=== PATIENT | female | born 1980 | race Hispanic/Latino ===

== ENCOUNTER 2022-02-15 14:08 | Emergency (ER) | payer SELFPAY ==
[2022-02-15 15:55] LABS: Basophils % (Auto) 0.5 % (0.0-1.8); Eosinophils # (Auto) 0.1 K/mm3 (0.0-0.4); Eosinophils % (Auto) 1.3 % (0.0-4.3); Hematocrit 37.2 % (30.3-42.9); Hemoglobin 12.1 gm/dl (10.1-14.3); Lymphocytes # (Auto) 2.9 K/mm3 (1.2-5.4); Lymphocytes % (Auto) 37.3 % (13.4-35.0); Mean Corpuscular HGB Conc 33 % (30-34); Mean Corpuscular Volume 75 fl (79-97); Monocytes # (Auto) 0.7 K/mm3 (0.0-0.8); Monocytes % (Auto) 9.4 % (0.0-7.3); Platelet Count 305 K/mm3 (140-440); Red Blood Count 4.98 M/mm3 (3.65-5.03)
[2022-02-15 15:56] LABS: Red Cell Distribution Width 22.5 % (13.2-15.2)
[2022-02-15 16:07] LABS: Amphetamine Screen,Urine PRESUMPTIVE NEGATIVE; Benzodiazepines Screen,Urine PRESUMPTIVE NEGATIVE; Cannabinoid Screen,Urine PRESUMPTIVE NEGATIVE; Cocaine Screen,Urine PRESUMPTIVE POSITIVE; Methadone Screen,Urine PRESUMPTIVE NEGATIVE; Opiate Screen,Urine PRESUMPTIVE NEGATIVE
[2022-02-15 16:12] LABS: Blood Urea Nitrogen 5 mg/dL (7-17); Calcium 8.9 mg/dL (8.4-10.2); Hemolysis Index 4
[2022-02-15 16:15] LABS: BUN/Creatinine Ratio 8
[2022-02-15 16:23] LABS: Color,Urine Yellow (Yellow)
[2022-02-15 16:27] LABS: Bacteria,Urine 1+ /HPF (Negative); WBC,Urine < 1.0 /HPF (0.0-6.0)
--- NOTE | 2022-02-15 17:06 | Emergency Department Report ---
ED General Adult HPI - General Chief complaint: Psych Stated complaint: SUICIDAL IDEATIONS PUI?: No Time Seen by Provider: 02/15/22 15:11 Source: patient Mode of arrival: Stretcher Limitations: No Limitations - History of Present Illness Initial comments: Pt presents with C/O depression with SI -: unknown Severity scale (0 -10): 0 Consistency: constant Associated Symptoms: denies: denies other symptoms, confusion, chest pain - Related Data Home Medications Medication Instructions Recorded Confirmed Last Taken No Known Home Medications [No 02/15/22 02/15/22 Unknown Reported Home Medications] Allergies Allergy/AdvReac Type Severity Reaction Status Date / Time No Known Allergies Allergy Unverified 02/15/22 14:53 ED Review of Systems ROS: Stated complaint: SUICIDAL IDEATIONS Other details as noted in HPI Constitutional: denies: chills, fever Eyes: denies: eye pain, eye discharge, vision change ENT: denies: ear pain, throat pain Respiratory: denies: cough, shortness of breath, wheezing Cardiovascular: denies: chest pain, palpitations Endocrine: no symptoms reported Gastrointestinal: denies: abdominal pain, nausea, diarrhea Genitourinary: denies: urgency, dysuria, discharge Musculoskeletal: denies: back pain, joint swelling, arthralgia Skin: denies: rash, lesions Neurological: denies: headache, weakness, paresthesias Psychiatric: denies: anxiety, depression Hematological/Lymphatic: denies: easy bleeding, easy bruising ED Past Medical Hx - Past Medical History Hx Seizures: Yes - Social History Smoking Status: Never Smoker Substance Use Type: Alcohol - Medications Home Medications: Home Medications Medication Instructions Recorded Confirmed Last Taken Type No Known Home Medications [No 02/15/22 02/15/22 Unknown History Reported Home Medications] ED Physical Exam - General Limitations: No Limitations General appearance: alert, anxious - Head Head exam: Present: atraumatic, normocephalic - Eye Eye exam: Present: normal appearance - ENT ENT exam: Present: mucous membranes moist - Neck Neck exam: Present: normal inspection - Respiratory Respiratory exam: Present: normal lung sounds bilaterally. Absent: respiratory distress - Cardiovascular Cardiovascular Exam: Present: regular rate, normal rhythm. Absent: systolic murmur, diastolic murmur, rubs, gallop - GI/Abdominal GI/Abdominal exam: Present: soft, normal bowel sounds - Extremities Exam Extremities exam: Present: normal inspection - Back Exam Back exam: Present: normal inspection - Neurological Exam Neurological exam: Present: alert, oriented X3 - Psychiatric Psychiatric exam: Present: depressed, agitated, anxious, suicidal ideation - Skin Skin exam: Present: warm, dry, intact, normal color. Absent: rash ED Course Vital Signs 02/15/22 02/15/22 14:22 15:17 Temperature 98.2 F Pulse Rate 109 H Respiratory 18 Rate Blood Pressure 131/85 [Left] O2 Sat by Pulse 100 100 Oximetry ED Medical Decision Making - Lab Data Result diagrams: 02/15/22 15:36 02/15/22 15:36 Critical care attestation.: If time is entered above; I have spent that time in minutes in the direct care of this critically ill patient, excluding procedure time. ED Disposition Clinical Impression: Suicidal ideation Disposition: 30 STILL A PATIENT Condition: Stable
--- NOTE | 2022-02-16 09:54 | Consultation ---
History of Present Illness - Reason for Consult Consult date: 02/16/22 Reason for consult: suicidal ideation - History of Present Psychiatric Illness The patient is a 41 year old female with unknown psychiatric history who presents to the ED with suicidal ideation. The patient is calm and cooperative. The patient reports ongoing depression x 7 months, state trigger as " I woke up to a bill that was due, I could not breathe, something felt different." She states " I wanted to kill myself yesterday, I was trying to hang myself and the thing broke, I'm stressed out, I feel like I lost myself." She reports cocaine use, last used on Thursday. She is tearful, stating " I just want to get back to feeling better." She denies any current suicidal/homicidal ideation and denies hallucinations. PAST PSYCHIATRIC HISTORY Diagnoses: Denies Suicide attempts or Self-harm behavior: Denies Prior psychiatric hospitalizations: Denies Substance Abuse history: Cocaine , alcohol Previous psychiatric medications tried: Denies Outpatient treatment: Denies PAST MEDICAL HISTORY: None reported Family Psychiatric History: None reported or documented SOCIAL HISTORY Marital Status: single Living Arrangements: Lives with ex girlfriend Employment Status: employed Access to guns/weapons: Denies Education: Some College History of Abuse: yes Legal History: Denies REVIEW OF SYSTEMS Constitutional: Negative for weight loss ENT: Negative for stridor Respiratory: Negative for cough or hemoptysis All other systems reviewed and are negative MENTAL STATUS EXAMINATION General Appearance and Behavior: Age appropriate, good hygiene, wearing appropriate clothes, good eye contact, calm, cooperative Cooperation: Participating/engaged Psychomotor Behavior: Psychomotor normal Mood: Depressed Affect and affective range: congruent with stated mood Thought Process: goal directed Thought Content: Reality oriented Speech: Normal tone and pace Suicidal Ideation: Denies Homicidal Ideation: Denies Hallucinations: Denies Delusions: None elicited Impulse Control: Normal Insight and Judgment: Limited insight and judgment Memory: Normal Attention: Attentive Orientation: Alert, oriented Assessment and Plan Major depressive disorder Treatment Plan 1013 Continue home Meds Trazadone 50mg QHS, Zoloft 25mg Dialy Risks, benefits and alternatives of medications discussed with the patient, questions answered and consent obtained from patient. PSYCHOTHERAPY: Supportive psychotherapy provided MEDICAL: Per primary team DELIRIUM PRECAUTIONS: Please re-orient patient frequently, keep lights on during the day, and minimize benzodiazepines and opiates as these medications could worsen patient's confusion. RN OSTOMY: Defer to primary DISPOSITION: Recommend acute inpatient psychiatric hospitalization at this time. Will follow. Thank you for the consult. Please contact with any questions and/or concerns. Case staffed with Dr. Spring Medications and Allergies Allergies Allergy/AdvReac Type Severity Reaction Status Date / Time No Known Allergies Allergy Unverified 02/15/22 14:53 Home Medications Medication Instructions Recorded Confirmed Last Taken Type No Known Home Medications [No 02/15/22 02/15/22 Unknown History Reported Home Medications] Mental Status Exam - Vital signs Last Vital Signs Temp 98.6 F 02/16/22 09:35 Pulse 95 H 02/16/22 09:35 Resp 20 02/16/22 09:35 BP 123/83 02/16/22 09:35 Pulse Ox 100 02/16/22 09:35 Results Result Diagrams: 02/15/22 15:36 02/15/22 15:36 Abnormal lab results 02/15/22 02/15/22 02/15/22 Range/Units 15:36 15:36 15:36 MCV (79-97) fl MCH (28-32) pg RDW (13.2-15.2) % Lymph % (Auto) (13.4-35.0) % Turner % (Auto) (0.0-7.3) % Carbon Dioxide 20 L (22-30) mmol/L BUN 5 L (7-17) mg/dL Salicylates < 0.3 L (2.8-20.0) mg/dL Acetaminophen 5.0 L (10.0-30.0) ug/mL Plasma/Serum Alcohol (0-0.07) % 02/15/22 02/15/22 Range/Units 15:36 15:36 MCV 75 L (79-97) fl MCH 24 L (28-32) pg RDW 22.5 H (13.2-15.2) % Lymph % (Auto) 37.3 H (13.4-35.0) % Turner % (Auto) 9.4 H (0.0-7.3) % Carbon Dioxide (22-30) mmol/L BUN (7-17) mg/dL Salicylates (2.8-20.0) mg/dL Acetaminophen (10.0-30.0) ug/mL Plasma/Serum Alcohol 0.25 H (0-0.07) % All other labs normal.
[2022-02-16] MEDS: SERTRALINE 25 MG TAB PO SCH (10:37)
--- NOTE | 2022-02-16 13:05 | Event Note ---
Date: 02/16/22 41 yo F admitted to ED with SI due to lots of stress and anxiety recently. Pt reports that she became anxious and suicidal after noting her bills that has to be paid. Psych round on patient as well and recommend inpatient and to continue Zoloft and Trazodone for major depression and SI.
[2022-02-16] MEDS ORDERED: traZODone 50 MG TAB PO SCH (22:00)
--- NOTE | 2022-02-17 10:23 | Progress Note ---
Subjective - Reason for Consult Consult date: 02/17/22 Reason for consult: suicidal ideation - Chief Complaint Chief complaint: The patient was seen today. She reports doing well. She states she was having a bad weekend and has had time to reflect. She denies any current suicidal/homicidal ideation and denies hallucinations. REVIEW OF SYSTEMS Constitutional: Negative for weight loss ENT: Negative for stridor Respiratory: Negative for cough or hemoptysis All other systems reviewed and are negative MENTAL STATUS EXAMINATION General Appearance and Behavior: Age appropriate, good hygiene, wearing ap propriate clothes, good eye contact, calm, cooperative Cooperation: Participating/engaged Psychomotor Behavior: Psychomotor normal Mood: calm Affect and affective range: congruent with stated mood Thought Process: goal directed Thought Content: Reality oriented Speech: Normal tone and pace Suicidal Ideation: Denies Homicidal Ideation: Denies Hallucinations: Denies Delusions: None elicited Impulse Control: Normal Insight and Judgment: Limited insight and judgment Memory: Normal Attention: Attentive Orientation: Alert, oriented Assessment and Plan Major depressive disorder Treatment Plan Dc 1013 Continue home Meds Trazadone 50mg QHS, Zoloft 25mg Dialy Risks, benefits and alternatives of medications discussed with the patient, questions answered and consent obtained from patient. PSYCHOTHERAPY: Supportive psychotherapy provided MEDICAL: Per primary team DELIRIUM PRECAUTIONS: Please re-orient patient frequently, keep lights on during the day, and minimize benzodiazepines and opiates as these medications could worsen patient's confusion. ASSOCIATE SOFTWARE DEVELOPER: Defer to primary DISPOSITION: Do not recommend acute inpatient psychiatric hospitalization at this time. Merchandising Director will provide patient with psychiatric outpatient resources and safety plan. Will sign off. Thank you for the consult. Please contact with any questions and/or concerns. Case staffed with Dr. Spring Mental Status Exam - Vital signs Last Vital Signs Temp 97.4 F L 02/16/22 17:03 Pulse 62 02/17/22 01:00 Resp 18 02/17/22 01:00 BP 104/76 02/17/22 01:00 Pulse Ox 100 02/17/22 01:00
[2022-02-17] MEDS: SERTRALINE 25 MG TAB PO SCH (10:46)
[2022-02-17 13:40] VITALS: BP 120/85
== END 2022-02-17 12:40 | disposition home or self-care (01) ==
LOC: ED 14:08
DX: R45.851 Suicidal ideations (principal); Z20.822 Contact with and (suspected) exposure to COVID-19; Z72.89 Other problems related to lifestyle; Z79.899 Other long term (current) drug therapy
CPT/HCPCS: 36415; 80048; 80307; 81001; 84703; 85025; 99284; U0003; 80320; G0480